=== PATIENT | male | born 1965 | race Caucasian/White ===

== ENCOUNTER 2017-07-08 11:51 | Inpatient (IN) | payer OTHER ==
[2017-07-08] MEDS: morphine 4 MG/ML VIAL IV (12:20)
[2017-07-08] MEDS: SOD CHLORIDE 0.9% 1,000 ML IV (12:20)
[2017-07-08] MEDS: ONDANSETRON 4 MG INJ IV (12:20)
[2017-07-08 12:58] LABS: ADD MAN DIFF? NO
[2017-07-08 13:01] LABS: WHITE BLOOD COUNT 19.4 10^3/ul (4.8-10.8)
[2017-07-08 13:01] LABS: BASOPHIL # 0.1 10^3/ul (0.0-0.1); BASOPHILS % 0.4 % (0.0-2.0); EOSINOPHILS # 0.1 10^3/ul (0.0-0.5); EOSINOPHILS % 0.5 % (0.0-7.0); HEMATOCRIT 44.6 % (42.0-52.0); HEMOGLOBIN 14.8 g/dl (14.0-18.0); LYMPHOCYTES # 2.4 10^3/ul (0.8-2.9); LYMPHOCYTES % 12.3 % (15.0-51.0); MEAN CORPUSCULAR HEMOGLOBIN 27.5 pg (29.0-33.0); MEAN CORPUSCULAR HGB CONC 33.2 g/dl (32.0-37.0); MEAN CORPUSCULAR VOLUME 82.7 fl (82.0-101.0); MEAN PLATELET VOLUME 10.5 fl (7.4-10.4); MONOCYTE # 1.5 10^3/ul (0.3-0.9); MONOCYTES % 7.8 % (0.0-11.0); NEUTROPHIL # 15.2 10^3/ul (1.6-7.5); NEUTROPHILS % 78.4 % (39.0-77.0); PLATELET COUNT 370 10^3/UL (140-415); RED BLOOD COUNT 5.39 10^6/ul (4.70-6.10); RED CELL DISTRIBUTION WIDTH 14.9 % (11.5-14.5)
[2017-07-08 13:51] LABS: PROTIME 13.3 Sec (11.9-14.9)
[2017-07-08 13:52] LABS: PARTIAL THROMBOPLASTIN TIME 30.5 Sec (25.0-35.0)
[2017-07-08 13:55] LABS: ALANINE AMINOTRANSFERASE 15 IU/L (13-69); ALBUMIN 4.6 g/dl (3.3-4.9); ALBUMIN/GLOBULIN RATIO 1.35; ALKALINE PHOSPHATASE 110 IU/L (42-121); ANION GAP 21 (8-16); ASPARTATE AMINO TRANSFERASE 21 IU/L (15-46); BILIRUBIN,INDIRECT 0.8 mg/dl (0-1.1); BILIRUBIN,TOTAL 0.8 mg/dl (0.2-1.3); BLOOD UREA NITROGEN 12 mg/dl (7-20); CALCIUM 9.8 mg/dl (8.4-10.2); CARBON DIOXIDE 24 mmol/L (21-31); CHLORIDE 95 mmol/L (97-110); CREATININE 0.71 mg/dl (0.61-1.24); GLUCOSE 88 mg/dl (70-220); LIPASE 292 U/L (23-300); POTASSIUM 4.1 mmol/L (3.5-5.1); SODIUM 136 mmol/L (135-144)
[2017-07-08 14:00] LABS: LACTIC ACID 3.6 mmol/L (0.5-2.0)
[2017-07-08 14:05] LABS: TROPONIN-I < 0.012 ng/ml (0.00-0.12)
[2017-07-08 14:24] LABS: ADD UMIC YES; UR ASCORBIC ACID NEGATIVE (NEGATIVE); UR BILIRUBIN (Dip) NEGATIVE (NEGATIVE); UR BLOOD (Dip) 2+ mg/dL (NEGATIVE); UR CLARITY CLEAR (CLEAR); UR COLOR YELLOW (YELLOW); UR GLUCOSE (Dip) NEGATIVE (NEGATIVE); UR KETONES (Dip) 1+ mg/dL (NEGATIVE); UR LEUKOCYTE ESTERASE (Dip) NEGATIVE Leu/ul (NEGATIVE); UR NITRITE (Dip) NEGATIVE (NEGATIVE); UR RBC 2 /HPF (0-5); UR SPECIFIC GRAVITY (Dip) 1.005 (1.003-1.030); UR TOTAL PROTEIN (Dip) 1+ mg/dl (NEGATIVE); UR UROBILINOGEN (Dip) NEGATIVE (NEGATIVE); UR WBC 1 /HPF (0-5)
[2017-07-08] MEDS: CEFEPIME 2GM/50 ML (PMX) 50 ML IVPB (14:28)
[2017-07-08] MEDS: SODIUM CHLORIDE 0.9% 1L BAG IV* (14:28)
[2017-07-08] MEDS ORDERED: ACETAMINOPHEN 325 MG TAB PO ×2 (16:30→18:30)
[2017-07-08] MEDS ORDERED: ONDANSETRON 4 MG INJ IV ×2 (16:30→18:30)
[2017-07-08] MEDS: VANCOMYCIN 1 GM (PMX) 250 ML IVPB (17:28)
[2017-07-08 18:07] LABS: LACTIC ACID 1.1 mmol/L (0.5-2.0)
[2017-07-08] MEDS ORDERED: morphine 2 MG INJ IV (18:30)
[2017-07-08] MEDS ORDERED: NITROGLYCERIN (SL) 0.4 MG TAB SL (18:30)
[2017-07-08] MEDS ORDERED: NACL 0.9% 3 ML SYG IV (18:30)
[2017-07-08] MEDS ORDERED: hydrALAzine 20 MG INJ IV (18:30)
[2017-07-08] MEDS ORDERED: NA PHOSPHATE/BIPHOS 133 ML ENEMA PR (18:30)
[2017-07-08] MEDS ORDERED: ALBUTEROL/IPRATROPIUM (NEB) 3 ML AMP HHN (18:30)
[2017-07-08] MEDS ORDERED: DOCUSATE SODIUM 100 MG CAP PO (18:30)
[2017-07-08] MEDS ORDERED: MAGNESIUM HYDROXIDE 30ML CUP PO (18:30)
[2017-07-08] MEDS: PREGABALIN 75 MG CAP PO (19:00)
[2017-07-08] MEDS: BACLOFEN 10 MG TAB PO (19:00)
[2017-07-08 20:12] LABS: LACTIC ACID 1.4 mmol/L (0.5-2.0)
[2017-07-08] MEDS: SOD CHLORIDE 0.45% 1,000 ML IV (20:13)
[2017-07-08] MEDS: HEPARIN 5,000 UNIT/0.5 ML VIAL SC (20:20)
[2017-07-08 20:30] LABS: FREE T4 (FREE THYROXINE) 1.34 ng/dl (0.64-1.79)
[2017-07-08 23:40] LABS: LACTIC ACID 0.8 mmol/L (0.5-2.0)
[2017-07-09] MEDS: LORAZEPAM 2 MG INJ IV ×3 (04:04→21:07)
[2017-07-09] MEDS: PIPER-TAZO 3.375 GM IV (PMX) 100 ML IVPB ×3 (05:36→17:55)
[2017-07-09] MEDS: BACLOFEN 10 MG TAB PO ×4 (06:00→18:00)
[2017-07-09] MEDS: PREGABALIN 75 MG CAP PO ×3 (06:00→22:00)
[2017-07-09] MEDS: PANTOPRAZOLE (EC) 40 MG TAB PO (07:51)
[2017-07-09] MEDS: HEPARIN 5,000 UNIT/0.5 ML VIAL SC ×2 (09:00→21:00)
[2017-07-09] MEDS: SOD CHLORIDE 0.45% 1,000 ML IV ×2 (09:21→21:10)
[2017-07-09 11:14] LABS: ADD MAN DIFF? NO
[2017-07-09 11:17] LABS: ABNORMAL IP MESSAGE 1; BASOPHIL # 0.1 10^3/ul (0.0-0.1); BASOPHILS % 0.5 % (0.0-2.0); EOSINOPHILS # 0.4 10^3/ul (0.0-0.5); EOSINOPHILS % 3.1 % (0.0-7.0); HEMATOCRIT 37.2 % (42.0-52.0); HEMOGLOBIN 12.5 g/dl (14.0-18.0); LYMPHOCYTES # 2.2 10^3/ul (0.8-2.9); LYMPHOCYTES % 16.4 % (15.0-51.0); MEAN CORPUSCULAR HEMOGLOBIN 27.7 pg (29.0-33.0); MEAN CORPUSCULAR HGB CONC 33.6 g/dl (32.0-37.0); MEAN CORPUSCULAR VOLUME 82.5 fl (82.0-101.0); MEAN PLATELET VOLUME 10.6 fl (7.4-10.4); MONOCYTE # 1.5 10^3/ul (0.3-0.9); MONOCYTES % 11.4 % (0.0-11.0); NEUTROPHIL # 9.1 10^3/ul (1.6-7.5); NEUTROPHILS % 68.1 % (39.0-77.0); PLATELET COUNT 313 10^3/UL (140-415); POSITIVE DIFF @See below; RED BLOOD COUNT 4.51 10^6/ul (4.70-6.10); RED CELL DISTRIBUTION WIDTH 15.2 % (11.5-14.5)
[2017-07-09 11:17] LABS: WHITE BLOOD COUNT 13.3 10^3/ul (4.8-10.8)
[2017-07-09 11:33] LABS: HEMOGLOBIN A1C 5.3 % (0-5.9)
[2017-07-09 11:36] LABS: ANION GAP 18 (8-16); BLOOD UREA NITROGEN 8 mg/dl (7-20); CALCIUM 8.7 mg/dl (8.4-10.2); CARBON DIOXIDE 21 mmol/L (21-31); CHLORIDE 106 mmol/L (97-110); CHOL/HDL RATIO 4.5 RATIO; CHOLESTEROL 159 mg/dl (100-200); CREATININE 0.61 mg/dl (0.61-1.24); GLUCOSE 91 mg/dl (70-220); HDL CHOLESTEROL 35 mg/dl (28-71); LDL CHOLESTEROL,CALCULATED 104 mg/dl; MAGNESIUM 1.6 mg/dl (1.7-2.5); PHOSPHORUS 2.2 mg/dl (2.5-4.9); POTASSIUM 3.8 mmol/L (3.5-5.1); SODIUM 141 mmol/L (135-144); TRIGLYCERIDES 98 mg/dl (0-149)
[2017-07-09] MEDS: MAGNESIUM SULFATE 2 GM/50 ML 50 ML IVPB (14:33)
[2017-07-09] MEDS: HYDROCODONE/APAP (5/325) TAB PO (14:50)
[2017-07-09] MEDS: POTASSIUM PHOSPHATE 20 MEQ in SOD CHLORIDE 0.9% 250 ML IVPB (16:38)
[2017-07-09] MEDS ORDERED: PIPER-TAZO 3.375 GM IV (PMX) 100 ML IVPB (19:00)
[2017-07-09] MEDS: NYSTATIN 15 GM OINT TOP (21:00)
[2017-07-10] MEDS: PIPER-TAZO 3.375 GM IV (PMX) 100 ML IVPB ×3 (00:11→11:42)
[2017-07-10] MEDS: NYSTATIN 15 GM OINT TOP ×2 (00:11→09:44)
[2017-07-10] MEDS: PANTOPRAZOLE (EC) 40 MG TAB PO (05:26)
[2017-07-10] MEDS: BACLOFEN 10 MG TAB PO ×3 (05:27→11:44)
[2017-07-10] MEDS: PREGABALIN 75 MG CAP PO ×2 (05:27→13:30)
[2017-07-10 06:42] LABS: ADD MAN DIFF? NO
[2017-07-10 06:46] LABS: BASOPHIL # 0.1 10^3/ul (0.0-0.1); BASOPHILS % 0.6 % (0.0-2.0); EOSINOPHILS # 0.6 10^3/ul (0.0-0.5); EOSINOPHILS % 6.2 % (0.0-7.0); HEMATOCRIT 38.8 % (42.0-52.0); HEMOGLOBIN 12.8 g/dl (14.0-18.0); MEAN CORPUSCULAR HEMOGLOBIN 27.6 pg (29.0-33.0); MEAN CORPUSCULAR VOLUME 83.6 fl (82.0-101.0); MEAN PLATELET VOLUME 10.4 fl (7.4-10.4); MONOCYTES % 11.4 % (0.0-11.0); NEUTROPHIL # 5.3 10^3/ul (1.6-7.5); NEUTROPHILS % 59.3 % (39.0-77.0); PLATELET COUNT 316 10^3/UL (140-415); RED BLOOD COUNT 4.64 10^6/ul (4.70-6.10); RED CELL DISTRIBUTION WIDTH 15.2 % (11.5-14.5)
[2017-07-10 06:46] LABS: WHITE BLOOD COUNT 8.9 10^3/ul (4.8-10.8)
[2017-07-10 07:13] LABS: ANION GAP 15 (8-16); BLOOD UREA NITROGEN 8 mg/dl (7-20); CALCIUM 8.8 mg/dl (8.4-10.2); CARBON DIOXIDE 25 mmol/L (21-31); CHLORIDE 111 mmol/L (97-110); CREATININE 0.67 mg/dl (0.61-1.24); GLUCOSE 105 mg/dl (70-220); POTASSIUM 4.5 mmol/L (3.5-5.1); SODIUM 146 mmol/L (135-144)
[2017-07-10] MEDS: HEPARIN 5,000 UNIT/0.5 ML VIAL SC (09:00)
[2017-07-10] MEDS: HYDROCODONE/APAP (5/325) TAB PO (09:43)
[2017-07-10] MEDS: SOD CHLORIDE 0.45% 1,000 ML IV (09:47)
[2017-07-10] MEDS: NA PHOSPHATE/BIPHOS 133 ML ENEMA PR (13:21)
[2017-07-10] MEDS: ERTAPENEM SODIUM 1 GM in SOD CHLORIDE 0.9% 100 ML IVPB (13:29)
== END 2017-07-10 14:55 | disposition home or self-care (01) | DRG 872 ==
LOC: E/R 11:51 → MS2 16:10
DX: A41.50 Gram-negative sepsis, unspecified (principal); G82.20 Paraplegia, unspecified; N39.0 Urinary tract infection, site not specified; K59.2 Neurogenic bowel, not elsewhere classified; K59.00 Constipation, unspecified; L89.222 Pressure ulcer of left hip, stage 2; L89.322 Pressure ulcer of left buttock, stage 2; L89.621 Pressure ulcer of left heel, stage 1; L89.611 Pressure ulcer of right heel, stage 1; R65.20 Severe sepsis without septic shock; R14.0 Abdominal distension (gaseous); N31.9 Neuromuscular dysfunction of bladder, unspecified; K21.9 Gastro-esophageal reflux disease without esophagitis; B96.20 Unspecified Escherichia coli [E. coli] as the cause of diseases classified elsewhere
CPT/HCPCS: 36415; 74176; 80048; 80053; 80061; 81001; 83036; 83605; 83690; 83735; 84100; 84439; 84443; 84484; 85025; 85610; 85730; 87040; 87086; 93005; 96365; 96375; 97161; 99291-25

== ENCOUNTER 2017-07-21 14:07 | Outpatient (CLI) | payer OTHER | END 2017-07-24 14:07 | disposition home or self-care (01) | LOC: DCC 14:07 | DX: R10.9 Unspecified abdominal pain (principal); G82.20 Paraplegia, unspecified; N39.0 Urinary tract infection, site not specified; K27.9 Peptic ulcer, site unspecified, unspecified as acute or chronic, without hemorrhage or perforation; L89.159 Pressure ulcer of sacral region, unspecified stage | CPT/HCPCS: G0463 ==

== ENCOUNTER 2017-08-14 13:49 | Outpatient (CLI) | payer OTHER | END 2017-08-14 17:06 | disposition home or self-care (01) | LOC: DCC 13:49 | DX: G82.20 Paraplegia, unspecified (principal); E11.622 Type 2 diabetes mellitus with other skin ulcer; K27.9 Peptic ulcer, site unspecified, unspecified as acute or chronic, without hemorrhage or perforation; Z87.440 Personal history of urinary (tract) infections | CPT/HCPCS: G0463 ==